=== PATIENT | female | born 1955 | race American Indian/Alaskan Native ===

== ENCOUNTER 2017-07-06 09:03 | Day surgery (SDC) | payer OTHER ==
[2017-07-06] MEDS ORDERED: NACL 0.9% 1000 ML 1,000 ML IV SCH (11:00)
[2017-07-06] MEDS ORDERED: DIPRIVAN 10 MG/ML IV ONE ×2 (11:04→11:05)
[2017-07-06] MEDS ORDERED: WATER FOR IRRIG STERILE IR ONE (11:07)
--- NOTE | 2017-07-06 11:45 | Post Operative Note ---
Pre-op diagnosis: surveillance colonoscopy (personal history of colon cancer) Post-op diagnosis: other (small colon polyps removed, diverticulosis, fair prep) Findings: Colonoscopy: 1. polyp in descending colon removed with cold snare 2. polyp in sigmoid colon removed with cold forcep biopsy 3. hyperplastic appearing polyps in recto-sigmoid, not removed (all small) 4. diverticulosis Procedure: Colonoscopy with snare polypectomy and cold forcep biopsy Anesthesia: MAC Surgeon: MICHEL KELLOGG Estimated blood loss: minimal Pathology: list (Jar A - descending colon polyp, Jar B - sigmoid polyp) Specimen disposition: to lab Condition: stable Disposition: same day
--- NOTE | 2017-07-06 11:48 | Operative Report ---
Operative Report Operative Report: COLONOSCOPY PROCEDURE NOTE Date of procedure: 07/06/2017 Endoscopist: Moses Gomez Pre-op diagnosis: personal history of colon cancer, surveillance colonoscopy Post-op diagnosis: small colon polyp x 2 removed, diverticulosis Anesthesia: MAC Complications: no immediate complications Estimated blood loss: minimal Procedure: After consent was obtained, the patient was placed in the left lateral decubitus position. The fujinon colonoscope was inserted into the patient's rectum under direct vision, and advanced to the cecum without difficulty. The patient tolerated the procedure well. The patient's vital signs were monitored continuously throughout the procedure. The quality of prep was fair. The views of the mucosa were fair. Findings: One small (~4 mm) sessile polyp in the descending colon. The polyp was removed and retrieved with cold snare polypectomy. There was an ~2 mm sessile polyp in the sigmoid colon. The polyp was removed and retrieved with cold forceps biopsy. Multiple small hyperplastic appearing polyps in the rectum and recto-sigmoid colon. Scattered diverticula in the colon. Impression: 1. Small colon polyp removed with cold biopsy forceps. 2. Internal hemorrhoids Recommendations: -follow-up pathology -high fiber diet daily -repeat colonoscopy for surveillance in 2-3 years based on pathology results
[2017-07-06 12:15] VITALS: BP 148/86
--- NOTE | 2017-07-06 12:17 | Anesthesia Day of Surgery ---
Anesthesia Day of Surgery - Day of Surgery Patient Examined: Yes Patient H&P Reviewed: Yes Patient is NPO: Yes
--- NOTE | 2017-07-06 12:18 | Anesthesia Consultation ---
Anesthesia Consult and Med Hx Date of service: 07/06/17 - Airway Anesthetic Teeth Evaluation: Good ROM Head & Neck: Adequate Mental/Hyoid Distance: Inadequate Mallampati Class: Class II Intubation Access Assessment: Probably Good - Pulmonary Exam CTA: Yes - Cardiac Exam Cardiac Exam: RRR - Pre-Operative Health Status ASA Pre-Surgery Classification: ASA3 Proposed Anesthetic Plan: General - Cardiovascular System Hx Hypertension: Yes - Central Nervous System Hx Seizures: Yes - Gastrointestinal Hx Gastroesophageal Reflux Disease: Yes - Endocrine Hx Non-Insulin Dependent Diabetes: Yes Hx Hypothyroidism: Yes - Other Systems Hx Cancer: Yes
--- NOTE | 2017-07-06 12:18 | Post Anesthesia Evaluation ---
- Post Anesthesia Evaluation Patient Participated: Yes Airway Patent: Yes Stable Respiratory Function: Yes Nausea/Vomiting: No Temp > 96.8F: Yes Pain Manageable: Yes Adequeate Hydration: Yes Anesthesia Complications: No
== END 2017-07-06 09:04 | disposition home or self-care (01) ==
LOC: GIO 09:03
PROVIDERS: ATTEND Internal Medicine Gastroenterology
DX: Z08 Encounter for follow-up examination after completed treatment for malignant neoplasm (principal); K63.5 Polyp of colon; K57.90 Diverticulosis of intestine, part unspecified, without perforation or abscess without bleeding; K64.8 Other hemorrhoids; K21.9 Gastro-esophageal reflux disease without esophagitis; J44.9 Chronic obstructive pulmonary disease, unspecified; I10 Essential (primary) hypertension; E78.00 Pure hypercholesterolemia, unspecified; E03.9 Hypothyroidism, unspecified; E78.5 Hyperlipidemia, unspecified; E11.9 Type 2 diabetes mellitus without complications; G47.30 Sleep apnea, unspecified; F41.9 Anxiety disorder, unspecified; F32.9 Major depressive disorder, single episode, unspecified; Z79.84 Long term (current) use of oral hypoglycemic drugs; Z90.710 Acquired absence of both cervix and uterus; Z98.890 Other specified postprocedural states; Z90.49 Acquired absence of other specified parts of digestive tract
CPT/HCPCS: 45380; 45385; 82962; 88305; J2704; J7030

== ENCOUNTER 2021-03-02 13:41 | Outpatient (CLI) | payer MEDICARE, OTHER ==
--- NOTE | 2021-03-02 15:48 | XRay Report ---
LEFT KNEE 4 VIEW(S) INDICATION / CLINICAL INFORMATION: LEFT KNEE PAIN COMPARISON: None available. FINDINGS: BONES / JOINT(S): No acute fracture or subluxation. Moderate tricompartmental osteoarthrosis. Tiny we ll-corticated ossicle along the fibular head, may represent a remote avulsion fracture. SOFT TISSUES: No significant abnormality. ADDITIONAL FINDINGS: None. Signer Name: Mikal Gonzalez MD Signed: 03/02/2021 3:44 PM Workstation Name: [email or web address] [id number]
--- NOTE | 2021-03-02 15:52 | XRay Report ---
LEFT HIP 3 VIEW(S) INDICATION / CLINICAL INFORMATION: LEFT HIP PAIN COMPARISON: None available. FINDINGS: BONES / JOINT(S): No acute fracture or subluxation. Mild osteoarthrosis of bilateral hip joints. SOFT TISSUES: No significant abnormality. ADDITIONAL FINDINGS: None. Signer Name: Mikal Gonzalez MD Signed: 03/02/2021 3:48 PM Workstation Name: [email or web address]
--- NOTE | 2021-03-02 15:54 | XRay Report ---
LEFT ANKLE 3 VIEW(S) INDICATION / CLINICAL INFORMATION: LEFT ANKLE PAIN COMPARISON: None available. FINDINGS: BONES / JOINT(S): No acute fracture or subluxation. Mild degenerative change of the ankle, hindfoot a nd midfoot. Intra-articular insertion enthesophytes of the calcaneus. SOFT TISSUES: No significant abnormality. ADDITIONAL FINDINGS: None. Signer Name: Mikal Gonzalez MD Signed: 03/02/2021 3:50 PM Workstation Name: [email or web address]
== END 2021-03-02 13:42 | disposition home or self-care (01) ==
LOC: XRAY 13:41
PROVIDERS: ATTEND Orthopaedic Surgery Sports Medicine
DX: S80.02XD Contusion of left knee, subsequent encounter (principal); M19.072 Primary osteoarthritis, left ankle and foot; M16.0 Bilateral primary osteoarthritis of hip; M17.12 Unilateral primary osteoarthritis, left knee; X58.XXXD Exposure to other specified factors, subsequent encounter

== ENCOUNTER 2021-04-27 11:15 | Outpatient (CLI) | payer MEDICARE ==
--- NOTE | 2021-04-27 13:58 | Magnetic Resonance Report ---
MRI LEFT KNEE WITHOUT CONTRAST INDICATION / CLINICAL INFORMATION: LEFT KNEE CONTUSION. TECHNIQUE: Multiplanar, multisequence MR images were obtained. No contrast used. COMPARISON: Radiographs dated 03/02/21 FINDINGS: ACL: No significant abnormality. PCL: No significant abnormality. DISTAL QUADRICEPS TENDON: No significant abnormality. PATELLAR TENDON: Intact. Small focus of heterotopic ossification in the proximal tendon. MEDIAL MENISCUS: No significant abnormality. LATERAL MENISCUS: No significant abnormality. MCL: No significant abnormality. LCL: No significant abnormality. DISTAL IT BAND: No significant abnormality. PATELLOFEMORAL ALIGNMENT: No significant abnormality. ARTICULAR CARTILAGE: Moderate chondrosis of the lateral facet of the patella. Mild chondrosis of the medial and lateral compartments.. JOINT SPACE: Small joint effusion. No significant popliteal cyst. No intra-articular bodies. BONES: No significant bone marrow edema. No fracture. No osseous lesion. SOFT TISSUES: No significant abnormality. ADDITIONAL FINDINGS: None. IMPRESSION: 1. No acute ligament or meniscal tear. 2. Moderate patellofemoral chondrosis and degenerative arthrosis with mild chondrosis of the medial l ateral compartments. Signer Name: Pablito Manuel MD Signed: 04/27/2021 1:53 PM Workstation Name: [id number]
== END 2021-04-27 11:16 | disposition home or self-care (01) ==
LOC: MRI 11:15
PROVIDERS: ATTEND Orthopaedic Surgery Sports Medicine
DX: S80.02XD Contusion of left knee, subsequent encounter (principal); M17.12 Unilateral primary osteoarthritis, left knee; M25.462 Effusion, left knee; X58.XXXD Exposure to other specified factors, subsequent encounter
CPT/HCPCS: 73721

== ENCOUNTER 2021-09-04 11:41 | Outpatient (CLI) | payer MEDICARE ==
--- NOTE | 2021-09-04 14:56 | XRay Report ---
Lumbar spine INDICATION: Fall FINDINGS: Calcification adjacent changes process of L5 on the right may represent distal ureteral sto ne however nonspecific. Alignment appears normal. Mild endplate changes throughout. Facet degenerativ e change most significant L4-5 and L5-S1. IMPRESSION: Degenerative changes seen throughout spine. Pelvis and bilateral hips INDICATION: Pain FINDINGS: Mild degenerative change bilateral hips and joint space narrowing. No acute fracture disloc ation. Sacrum and sacroiliac joints appear normal. IMPRESSION: No acute findings. Right humerus 2 views INDICATION: Fall FINDINGS: Degenerative changes seen of the AC joint and glenohumeral joint. No acute fracture or disl ocation. Left shoulder 3 views INDICATION: Fall FINDINGS: Irregularity in the distal clavicle and AC joint suggesting degenerative change. Glenohumer al joint appears normal. No acute fracture is seen. Cervical spine INDICATION: Neck pain FINDINGS: Discogenic degenerative changes seen throughout spine with endplate changes anterior disc o steophytes at several levels. Cervicothoracic junction appears normal. Odontoid appears normal. Facet s appear well aligned. Left knee 3 views INDICATION: Pain FINDINGS: Tricompartmental degenerative osteoarthrosis with joint space narrowing throughout. No acut e fracture. Signer Name: Stefan Fernandez MD Signed: 09/04/2021 2:51 PM Workstation Name: [id number]
== END 2021-09-04 11:42 | disposition home or self-care (01) ==
LOC: XRAY 11:41
PROVIDERS: ATTEND Physical Medicine & Rehabilitation
DX: S70.02XD Contusion of left hip, subsequent encounter (principal); S80.02XD Contusion of left knee, subsequent encounter; S40.012A Contusion of left shoulder, initial encounter; S39.012A Strain of muscle, fascia and tendon of lower back, initial encounter; S16.1XXA Strain of muscle, fascia and tendon at neck level, initial encounter; M47.816 Spondylosis without myelopathy or radiculopathy, lumbar region; M16.0 Bilateral primary osteoarthritis of hip; M19.011 Primary osteoarthritis, right shoulder; M25.78 Osteophyte, vertebrae; M17.12 Unilateral primary osteoarthritis, left knee; X58.XXXD Exposure to other specified factors, subsequent encounter; X58.XXXA Exposure to other specified factors, initial encounter; Y93.89 Activity, other specified; Y92.89 Other specified places as the place of occurrence of the external cause; Y99.8 Other external cause status
CPT/HCPCS: 72050; 72110; 73521